=== PATIENT | female | born 1990 | race African-American/Black ===

== ENCOUNTER 2016-08-11 20:55 | Outpatient (CLI) | payer MEDICAID ==
[~2016-08-11 20:55] MED LIST: MOTRIN-DPS800 MG PO; NIPPLECREAM TP; PRENATAL VIT1 TAB PO; TYLENOL #3 DPS1 TAB PO
[2016-09-29] MEDS ORDERED: COLACE-DPS100 MG PO (09:38)
[2016-09-29] MEDS ORDERED: PEPCID DPS20 MG PO (09:39)
[2016-09-29] MEDS ORDERED: TYLENOL DPS325 MG PO (09:39)
== END 2016-08-11 23:00 | disposition home or self-care (01) ==
LOC: 2LDRP 20:55 → BC 20:55
DX: O99.89 Other specified diseases and conditions complicating pregnancy, childbirth and the puerperium (principal); R10.30 Lower abdominal pain, unspecified; Z3A.33 33 weeks gestation of pregnancy

== ENCOUNTER 2016-09-21 21:39 | Outpatient (CLI) | payer MEDICAID ==
[2016-09-29] MEDS ORDERED: COLACE-DPS100 MG PO (09:38)
[2016-09-29] MEDS ORDERED: PEPCID DPS20 MG PO (09:39)
[2016-09-29] MEDS ORDERED: TYLENOL DPS325 MG PO (09:39)
== END 2016-09-21 22:20 | disposition home or self-care (01) ==
DX: O99.89 Other specified diseases and conditions complicating pregnancy, childbirth and the puerperium (principal); N89.8 Other specified noninflammatory disorders of vagina; Z3A.39 39 weeks gestation of pregnancy

== ENCOUNTER 2016-09-25 16:35 | Inpatient (IN) | payer MEDICAID ==
[~2016-09-25] VITALS: Ht 175.3 cm; Wt 88.9 kg
--- NOTE | ~2016-09-25 | FD ---
ADMIT: 09/25/2016 RM/LOC: 220 [facility] MR#: [id number] [address] [address] [facility] [address] [place] [address] Final Diagnosis SEX: F AGE: 26 : 1990 ADMISSION DATE: 09/25/2016 DISCHARGE DATE: 09/27/2016 FINAL DIAGNOSIS: 1. Term intrauterine at 4 weeks 1 day. 2. Active labor. 3. Short interval . PROCEDURE: Spontaneous vaginal delivery. Sandi Ball MD/ hugh JOB #: [id number] CC: Lucinda Colbert MD, Attending Physician Lucinda Colbert MD, Family Physician
--- NOTE | ~2016-09-25 | OR ---
ADMIT: 09/25/2016 RM/LOC: 220 [facility] MR#: [id number] [address] [address] [place] [address] Operative/Delivery Room Report SEX: F AGE: 26 : 1990 SURGERY DATE: 09/25/2016 SURGEON: Sandi Ball MD PREOPERATIVE DIAGNOSES: 1. Term intrauterine at 40-1/7 weeks. 2. Active labor. 3. Short interval . 4. Maternal tobacco abuse. POSTOPERATIVE DIAGNOSES: 1. Term intrauterine at 40-1/7 weeks. 2. Active labor. 3. Short interval . 4. Maternal tobacco abuse. PROCEDURE: Spontaneous vaginal delivery. FINDINGS: Viable male infant with scores of 8 and 9 and a weight of 8 pounds 0.5 ounces (right 3.64 kg). Intact placenta with three-vessel cord. No perineal lacerations noted. ANESTHESIA: None. ESTIMATED BLOOD LOSS: 250 mL. INDICATIONS FOR PROCEDURE: This is a 26-year-old G3, P2-0-0-2, who presents to Labor and Delivery at 40 weeks, 1/7 days by LMP equals 8-week ultrasound. Her has been complicated by the above. She presented to Labor and Delivery with complaints of regular and painful contractions and had been found to have cervical change from prior examinations to 6 cm. She underwent AROM for augmentation, progressed normally through labor and was found to be complete. ADMIT: 09/25/2016 RM/LOC: 220 [facility] MR#: [id number] [address] [address] [place] [id number] Operative/Delivery Room Report SEX: F AGE: 26 : 1990 PROCEDURE IN DETAIL: With maternal expulsive efforts, head was delivered over intact perineum in AMINA position. No nuchal cord was noted. The rest of the infant then delivered easily. The was then placed on maternal chest and delayed cord clamping was employed x1 minute. The cord was then clamped and cut. Cord blood was collected. Placenta then delivered spontaneously intact and was noted to have a three-vessel cord. On exam of the perineum, there is no significant perineal lacerations noted. Sponge and instrument counts were correct x2 at the end of the case. COMPLICATIONS: None. DISPOSITION: Mom stable in delivery room, infant to nursery. Sandi Ball MD/ jaylyn JOB #: [id number] CC: Lucinda Colbert, Attending Physician Lucinda Colbert, Family Physician
[2016-09-29] MEDS ORDERED: COLACE-DPS100 MG PO (09:38)
[2016-09-29] MEDS ORDERED: TYLENOL DPS325 MG PO (09:39)
[2016-09-29] MEDS ORDERED: PEPCID DPS20 MG PO (09:39)
--- NOTE | 2016-09-29 13:27 | HP ---
ADMIT: 09/25/2016 RM/LOC: 220 [facility] MR#: [id number] [id number] [place], [place] [address] [facility] [address] [place] [address] History and Physical SEX: F AGE: 26 : 1990 DATE OF SERVICE: HISTORY OF PRESENT ILLNESS: This is a 26-year-old, G3, P2-0-0-2, who presents to Labor and Delivery at 40 and 1/7th weeks with complaints of contractions. She denies any loss of fluid. She notes good movement and no vaginal bleeding. Her has been complicated by history of tobacco use, short interval , and anemia. PAST MEDICAL HISTORY: None. PAST SURGICAL HISTORY: None. HEALTHCARE MAINTANENCE: Pap smear was n 2015, normal. SOCIAL HISTORY: She smokes 5 cigarettes a day. She is single, but in a relationship. No alcohol. No caffeine. FAMILY HISTORY: Her mother had hepatitis B. ALLERGIES: NO KNOWN DRUG ALLERGIES. SHE HAS HAD 2 PRIOR SPONTANEOUS VAGINAL DELIVERIES AT TERM, ONE IN 2008 AND ONE IN 2016. OBSTETRIC LABORATORIES: GBS is negative. A 1-hour Glucola is 122. Hepatitis B surface antigen was negative. RPR is nonreactive. Rubella was immune. She is A positive. Gonorrhea and chlamydia negative. Antibody screen was negative. HIV negative. REVIEW OF SYSTEMS: The patient denies any fevers, chills, chest pain, shortness of breath, nausea, or vomiting. Otherwise per HPI. PHYSICAL EXAMINATION: VITAL SIGNS: Blood pressure is 136/69, pulse is 92, respirations 16, temperature is 98.2, and she is 97% on room air. heart tones 135, moderate variability, positive accelerations, no decelerations. ADMIT: 09/25/2016 RM/LOC: 220 [facility] MR#: [id number] [id number] [facility] [address] [place], [place] [address] [facility] [address] [place] [address] History and Physical SEX: F AGE: 26 : 1990 HEART: Regular rate and rhythm. No murmurs, rubs, or gallops. LUNGS: Clear to auscultation bilaterally. ABDOMEN: Gravid. Estimated weight is approximately 3600 g. Cervix is 690 -1 AROM with clear fluid. ASSESSMENT/PLAN: This is a 26-year-old, G2, P2-0-0-2, with intrauterine at 40 and 1/7th weeks. 1. She is in active labor. Admit to Labor and Delivery. Anticipate normal spontaneous vaginal delivery. 2. GBS negative. Penicillin is not indicated for GBS prophylaxis. 3. She is Rh positive. RhoGAM is not indicated. 4. She is rubella immune. MMR is not indicated. Sandi Ball MD/ jaylyn JOB #: [id number] CC: Lucinda Colbert, Attending Physician Lucinda Colbert, Family Physician
== END 2016-09-27 19:14 | disposition home or self-care (01) | DRG 775 ==
LOC: BC 16:35 → 2LDRP 16:58
PROC: 10907ZC Drainage of Amniotic Fluid, Therapeutic from Products of Conception, Via Natural or Artificial Opening (ICD-10-PCS; principal; 2016-09-25)
PROC: 10E0XZZ Delivery of Products of Conception, External Approach (ICD-10-PCS; principal; 2016-09-25)
DX: O48.0 Post-term pregnancy (principal); D64.9 Anemia, unspecified; O99.334 Smoking (tobacco) complicating childbirth; F17.210 Nicotine dependence, cigarettes, uncomplicated; O99.02 Anemia complicating childbirth; Z3A.40 40 weeks gestation of pregnancy; Z37.0 Single live birth

== ENCOUNTER 2016-11-02 14:01 | Emergency (ER) | payer MEDICAID ==
[~2016-11-02 14:01] MED LIST changes: +COLACE-DPS100 MG PO; +PEPCID DPS20 MG PO; +TYLENOL DPS325 MG PO
== END 2016-11-02 14:30 | disposition left against medical advice (07) ==
LOC: ER 14:01
DX: Z53.21 Procedure and treatment not carried out due to patient leaving prior to being seen by health care provider (principal)